=== PATIENT | male | born 1990 | race Caucasian/White ===

== ENCOUNTER 2018-05-03 20:03 | Emergency (ER) | payer SELFPAY ==
[~2018-05-03] VITALS: Ht 167.6 cm; Wt 74.8 kg
[2018-05-03 20:10] VITALS: BP_SYST 135
[2018-05-03] MEDS ORDERED: IBUPROFEN 800 MG TABLET PO ONE (21:00)
[2018-05-03 22:15] VITALS: BP_SYST 130
== END 2018-05-03 22:15 | disposition home or self-care (01) ==
LOC: SED 20:03
DX: S39.012A Strain of muscle, fascia and tendon of lower back, initial encounter (principal); M25.512 Pain in left shoulder; V43.52XA Car driver injured in collision with other type car in traffic accident, initial encounter; Y93.89 Activity, other specified; Y92.410 Unspecified street and highway as the place of occurrence of the external cause; Y99.8 Other external cause status
CPT/HCPCS: 72100-TC; 73030; 99284